=== PATIENT | female | born 1945 | race Two or more races ===

== ENCOUNTER 2017-12-18 11:31 | Outpatient (CLI) | payer OTHER ==
[~2017-12-18 11:31] MED LIST: COUMADIN5 MG PO; ELIQUIS5 MG; FOLIC ACID1 MG PO; Folic Acid PO; HYZAAR 50/12.51 TAB PO; LIPITOR20 MG; Lipitor 20MG PO; NORVASC 5MG TAB PO; NORVASC5 MG; Synthroid PO; TENORMIN PO; TENORMIN50 MG; Tylenol Extra Strength 500MG PO; XARELTO 15MG TAB PO; Zestril PO
== END 2017-12-18 11:54 | disposition home or self-care (01) ==
LOC: RAD 11:31
DX: M65.812 Other synovitis and tenosynovitis, left shoulder (principal); M17.0 Bilateral primary osteoarthritis of knee; M16.0 Bilateral primary osteoarthritis of hip

== ENCOUNTER → 2019-03-19 | Outpatient (CLI) | payer OTHER | END | disposition home or self-care (01) | LOC: MAMO-SONO 10:15 | DX: I11.9 Hypertensive heart disease without heart failure (principal); R73.02 Impaired glucose tolerance (oral); F41.8 Other specified anxiety disorders; G62.89 Other specified polyneuropathies; I47.2 Ventricular tachycardia; E55.9 Vitamin D deficiency, unspecified; E66.8 Other obesity; M54.5 Low back pain; I25.10 Atherosclerotic heart disease of native coronary artery without angina pectoris; M12.1 Kaschin-Beck disease; Z12.31 Encounter for screening mammogram for malignant neoplasm of breast ==

== ENCOUNTER 2021-01-20 08:00 | Outpatient (CLI) | payer OTHER | END 2021-01-20 08:30 | disposition home or self-care (01) | LOC: PPH VACUNA 08:00 | PROVIDERS: ATTEND Emergency Medicine Pediatric Emergency Medicine | DX: Z23 Encounter for immunization (principal) ==

== ENCOUNTER 2021-07-18 17:29 | Emergency (ER) | payer OTHER ==
[~2021-07-18] VITALS: Ht 172.7 cm; Wt 87.5 kg
== END 2021-07-18 22:39 | disposition home or self-care (01) ==
LOC: ER 17:29
DX: R10.84 Generalized abdominal pain (principal); N28.1 Cyst of kidney, acquired; I10 Essential (primary) hypertension; Z79.01 Long term (current) use of anticoagulants; Z88.1 Allergy status to other antibiotic agents

== ENCOUNTER 2021-09-05 08:49 | Outpatient (CLI) | payer OTHER | END 2021-09-05 09:05 | disposition home or self-care (01) | LOC: PPH VACUNA 08:49 | PROVIDERS: ATTEND Emergency Medicine Pediatric Emergency Medicine | DX: Z23 Encounter for immunization (principal) ==

== ENCOUNTER 2021-11-01 09:38 | Outpatient (CLI) | payer OTHER | END 2021-11-01 09:47 | disposition home or self-care (01) | LOC: MAMO-SONO 09:38 | PROVIDERS: ATTEND Internal Medicine | DX: N60.12 Diffuse cystic mastopathy of left breast (principal); Z12.31 Encounter for screening mammogram for malignant neoplasm of breast ==

== ENCOUNTER 2022-03-09 14:14 | Emergency (ER) | payer OTHER ==
[~2022-03-09] VITALS: Ht 165.1 cm; Wt 87.5 kg
[2022-03-09] MEDS ORDERED: NEURONTIN300 MG PO (14:22)
[2022-03-09] MEDS ORDERED: APRESOLINE 10MG10 MG PO (14:23)
[2022-03-09] MEDS ORDERED: VITAMIN D350 MC4 PO (14:23)
[2022-03-09] MEDS ORDERED: AVAPRO300 MG PO (14:24)
[2022-03-09] MEDS ORDERED: ZETIA10 MG PO (14:24)
== END 2022-03-09 18:10 | disposition home or self-care (01) ==
LOC: ER 14:14
DX: S80.861A Insect bite (nonvenomous), right lower leg, initial encounter (principal); W57.XXXA Bitten or stung by nonvenomous insect and other nonvenomous arthropods, initial encounter; Y93.9 Activity, unspecified; Y92.9 Unspecified place or not applicable; I10 Essential (primary) hypertension; Z88.1 Allergy status to other antibiotic agents; Z79.01 Long term (current) use of anticoagulants

== ENCOUNTER 2023-03-17 01:52 | Emergency (ER) | payer OTHER ==
[~2023-03-17] VITALS: Ht 165.1 cm; Wt 83.9 kg
[~2023-03-17 01:52] MED LIST changes: +APRESOLINE 10MG10 MG PO; +AVAPRO300 MG PO; +NEURONTIN300 MG PO; +VITAMIN D350 MC4 PO; +ZETIA10 MG PO
[2023-03-17] MEDS ORDERED: HYDROCHLOROTHIA25 MG PO (02:05)
[2023-03-17 03:13] LABS: HEMATOCRIT 38.5 % (36.0-45.00); HEMOGLOBIN 12.9 g/dL (12.0-15.00); MEAN CELL VOLUME 91.7 fL (80.00-100.00); MEAN CORPUSCULAR HEMOGLOBIN 30.6 pg (27.00-32.0); MEAN CORPUSCULAR HGB CONC 33.4 g/dl (32.0-36.0); PLATELET COUNT 287 K/uL (150-450); RED CELL DISTRIBUTION WIDTH 14.6 % (11.5-14.5)
[2023-03-17 03:30] LABS: BILIRUBIN TOTAL 0.24 mg/dL (0.3-1.2); CALCIUM 10.3 mg/dL (8.5-10.1); CREATININE SERUM 0.94 mg/dL (0.55-1.02); GFR 57.74; POTASSIUM 3.79 mEq/L (3.5-5.1)
== END 2023-03-17 04:53 | disposition home or self-care (01) ==
LOC: ER 01:52
PROVIDERS: General Practice
DX: R00.2 Palpitations (principal); Z88.8 Allergy status to other drugs, medicaments and biological substances; I11.9 Hypertensive heart disease without heart failure
CPT/HCPCS: 36415; 71046; 93005; 96365; 99284; J1940

== ENCOUNTER 2023-04-03 13:16 | Outpatient (CLI) | payer OTHER ==
[~2023-04-03 13:16] MED LIST changes: +HYDROCHLOROTHIA25 MG PO
== END 2023-04-03 13:17 | disposition home or self-care (01) ==
LOC: NUCLEAR 13:16
PROVIDERS: ATTEND Internal Medicine
DX: E78.2 Mixed hyperlipidemia (principal); E78.9 Disorder of lipoprotein metabolism, unspecified

== ENCOUNTER 2024-05-07 10:28 | Outpatient (CLI) | payer OTHER | END 2024-05-07 10:41 | disposition home or self-care (01) | LOC: MAMO-SONO 10:28 | PROVIDERS: ATTEND Specialist | DX: D24.1 Benign neoplasm of right breast (principal); Z12.31 Encounter for screening mammogram for malignant neoplasm of breast ==